=== PATIENT | female | born 1985 | race Caucasian/White ===

== ENCOUNTER 2022-05-15 00:54 | Emergency (ER) | payer MEDICARE, MEDICAID, SELFPAY ==
[2022-05-15 00:55] VITALS: BP 150/66; PULSE 73; RESP 18; TEMP 36.6; O2SAT 99; BMI 31.2
--- NOTE | 2022-05-15 01:20 | EKG12_ITS ---
Test Reason : SOB Blood Pressure : / mmHG Vent. Rate : 071 BPM Atrial Rate : 071 BPM P-R Int : 176 ms QRS Dur : 090 ms QT Int : 450 ms P-R-T Axes : 069 132 081 degrees QTc Int : 489 ms Normal sinus rhythm Right axis deviation Low voltage QRS Confirmed by GEE MAYEN, JEFFERY ([id number]), photograph editor LITTLE DEE ([id number]) on 05/16/2022 9:19:43 AM Referred By: ZEINA Confirmed By:JEFFERY FLYNN MD
--- NOTE | 2022-05-15 01:20 | RAD_ITS ---
EXAM: XR CHEST, 1 VIEW CLINICAL INDICATION: cough TECHNIQUE: Frontal view of the chest. This report was created using [email or web address] report generation technology. COMPARISON: None. FINDINGS: LUNGS AND PLEURAL SPACES: Mild pulmonary edema. No pneumothorax. No effusion. HEART: Mild enlargement of the cardiac silhouette. MEDIASTINUM: Central airways and mediastinal contour are unremarkable. BONES/JOINTS: Unremarkable. SOFT TISSUES: Unremarkable. RAD/Chest 1 View (Portable) IMPRESSION: Mild pulmonary edema. Electronically Signed: Trenton Crane MD at 2:02 EDT ,
[2022-05-15] MEDS: Albuterol 2.5 MG/3 ML VIAL.NEB. INHALATION (01:26)
[2022-05-15] MEDS: Ipratropium/Albuterol Sulfate 3 ML AMPUL.NEB INHALATION ×2 (01:26→02:36)
[2022-05-15 01:27] VITALS: PULSE 74; RESP 14
--- NOTE | 2022-05-15 01:46 | EX.ED.DYSGE1 ---
HPI History of Present Illness Chief Complaint: Shortness of Breath Narrative Narrative: Patient is a 37-year-old female with past medical history of chronic renal failure on dialysis as well as diabetes treated with insulin and hypothyroidism. She states she has had a cough for approximately 3 weeks and has been tested for COVID multiple times and this has been negative. She states that she is a smoker and continues to smoke despite this cough. She states she receives dialysis Sunday and Sunday and has not missed any treatments. She reports this evening she felt her chest was tight and burning and she felt increased shortness of breath and therefore sent to the hospital for evaluation. [facility] Medical History Anemia Blind End stage renal disease Fistula Hypertension Hypothyroidism Type 1 diabetes mellitus Home Medications B [id number] acid-Zn tablet 1 tab PO DAILY supplement 05/15/22 [History Last Taken Unknown] albuterol sulfate 90 mcg/actuation aerosol inhaler (Ventolin HFA) 1 - 2 puff inhalation Q4H PRN PRN Wheezing #1 device 05/15/22 [Rx Last Taken Unknown] calcium acetate(phosphat bind) 667 mg tablet 2,001 mg PO TIDCM 05/15/22 [History Last Taken Unknown] clopidogrel 75 mg tablet 75 mg PO DAILY 05/15/22 [History Last Taken Unknown] hydralazine 50 mg tablet 50 mg PO TID 05/15/22 [History Last Taken Unknown] insulin glargine 100 unit/mL subcutaneous solution 14 unit subcut QHS 05/15/22 [History Last Taken Unknown] insulin lispro 100 unit/mL subcutaneous pen 6 unit subcut TIDCM 05/15/22 [History Last Taken Unknown] insulin lispro 100 unit/mL subcutaneous pen See Protocol subcut 05/15/22 [History Last Taken Unknown] ipratropium 0.5 mg-albuterol 3 mg (2.5 mg base)/3 mL nebulization soln 3 ml inhalation Q6H PRN shortness of breath or wheezing #180 mL 05/15/22 [Rx Last Taken Unknown] labetalol 300 mg tablet 400 mg PO TID 05/15/22 [History Last Taken Unknown] levothyroxine 150 mcg tablet 150 mcg PO MOTUWETHFRSA 05/15/22 [History Last Taken Unknown] levothyroxine 300 mcg tablet 300 mcg PO WOODS 05/15/22 [History Last Taken Unknown] nifedipine 90 mg tablet,extended release 90 mg PO DAILY 05/15/22 [History Last Taken Unknown] Allergy/AdvReac Type Severity Reaction Status Date / Time chlorhexidine Allergy Rash Verified 05/15/22 01:04 iodine Allergy Rash Verified 05/15/22 00:57 morphine Allergy Shortness Verified 05/15/22 00:57 of breath povidone-iodine Allergy PT UNSURE Verified 05/15/22 01:04 [From Betadine] OF REACTION clonidine AdvReac Low blood Verified 05/15/22 01:04 pressure Surgical History (Updated 05/15/22 @ 01:03 by Carmella Vargas) H/O eye surgery Social History Smoking Status: Current every day smoker tobacco type: cigarettes ROS ROS ED Constitutional Constitutional ED: Denies chills or fever(s) ENT ENT ED: Denies sore throat Cardiovascular Cardiovascular: Denies chest pain Respiratory/Chest Respiratory/Chest: Reports cough and dyspnea Gastrointestinal Gastrointestinal: Denies abdominal pain, diarrhea, nausea or vomiting Musculoskeletal Musculoskeletal: Denies myalgias Integumentary Denies rash Neurologic Neurologic: Denies headache(s) Psychiatric Psychiatric: Denies anxiety Hematologic/Lymphatic Hematologic/Lymphatic: Denies easy bleeding or easy bruising EXAM Physical Exam Const Vital Signs: 05/15/22 00:55 05/15/22 01:13 05/15/22 01:27 Temperature 97.9 F Temperature Source Temporal Pulse Rate 73 74 Respiratory Rate 18 14 Respiratory Effort Normal Non-Labored Respiratory Depth Normal Respiratory Pattern Normal Blood Pressure 150/66 H Blood Pressure Mean 94 Pulse Ox 99 Oxygen Delivery Method Room Air Room Air Positive well nourished, well developed and obese General Appearance ED: well developed Nutritional Appearance: obese HEENT Reports moist mucous membranes HEENT Narrative: No tongue or lip swelling no oral lesions no airway edema or compromise. There is cobblestoning the posterior pharynx consistent with sinus drainage. No secondary changes to suggest infection Neck supple Neck Narrative: Trace JVD bilaterally Resp normal respiratory effort Resp Narrative: No nasal flaring retractions tachypnea or accessory muscle use. Breath sounds are diminished throughout however with diffuse inspiratory and expiratory wheezing slightly greater in the bilateral bases Cardio regular rate and regular rhythm Extremity Extremity Narrative: Patient has a fistula in place in the left upper arm with palpable thrill and good bruit. There is trace pitting edema to the bilateral lower extremities with negative Homans' sign bilaterally Neuro oriented x3 and CN's II-XII intact bilaterally Sensorium / Orientation: alert Psych mental status grossly normal Skin no rashes or lesions noted MDM MDM MDM Narrative Medical decision making narrative: Patient presented to the ER afebrile and satting anywhere from 93 to 99% on room air. She has a history of smoking and her breath sounds were diminished and rhonchorous with wheeze throughout indicating most likely lung inflammation/COPD exacerbation as a cause of her chest discomfort and shortness of breath. With her chronic renal failure there is also concern for volume overload. Therefore I elected to perform a chest x-ray. This showed just mild pulmonary edema without pleural effusions infiltrate or pneumothorax. EKG showed normal sinus rhythm without changes to suggest ischemia or hyperkalemia. I felt no need for COVID swab as patient's had this done reportedly 2 or 3 times and each 1 has been negative. She was given breathing treatments and on reevaluation has improvement of her breath sounds and her pulse ox has remained stable. Therefore this time I do not feel there is need for further work-up or admission. Patient will be prescribed albuterol inhaler as well as DuoNeb nebulizer treatments which should prevent further exacerbation. She is scheduled to have dialysis in a few hours and this will help resolve the mild pulmonary edema found on today's x-ray. Therefore at this time as she is not hypoxic or requiring supplemental oxygen or in need of a thoracentesis I do not feel there is need to keep the patient in the hospital and she is otherwise safe for discharge Radiography Diagnostic Testing: Clinical Impression(s) from Imaging Studies Chest X-Ray 05/15/22 01:20 IMPRESSION: Mild pulmonary edema. Electronically Signed: Trenton Crane MD at 2:02 EDT , 1 view chest x-ray as interpreted by the emergency medicine physician reveals cardiomegaly with mild pulmonary edema but no pleural effusion infiltrate or pneumothorax Discharge Plan Triage Chief Complaint: Shortness of Breath ED Provider: Blair Velarde Dx/Rx/DC Orders Clinical Impression: COPD exacerbation, Chronic kidney failure, Pulmonary edema Instructions: COPD: Wheezing and Chest Tightness Prescriptions: New albuterol sulfate [Ventolin HFA] 90 mcg/actuation HFA aerosol inhaler 1 - 2 puff inhalation Q4H PRN PRN (Reason: Wheezing) Qty: 1 1RF ipratropium-albuterol 0.5 mg-3 mg(2.5 mg base)/3 mL solution for nebulization 3 ml inhalation Q6H PRN (Reason: shortness of breath or wheezing) Qty: 180 1RF No Action nifedipine 90 mg Tablet Extended Release 90 mg PO DAILY labetalol 300 mg Tablet 400 mg PO TID insulin glargine 100 unit/mL Solution 14 unit SUBCUT QHS levothyroxine 300 mcg Tablet 300 mcg PO WOODS clopidogrel 75 mg Tablet 75 mg PO DAILY calcium acetate(phosphat bind) 667 mg Tablet 2,001 mg PO TIDCM levothyroxine 150 mcg Tablet 150 mcg PO MOTUWETHFRSA hydralazine 50 mg Tablet 50 mg PO TID B gooesln-P-klren acid-Zn Tablet 1 tab PO DAILY insulin lispro 100 unit/mL Insulin Pen 6 unit SUBCUT TIDCM insulin lispro 100 unit/mL Insulin Pen See Protocol SUBCUT Protocol: 6. Sliding Scale Insulin Custom Condition: mg/dl range Condition: 200-250 Dose/Route: 2 Condition: 251-300 Dose/Route: 3 Condition: 301-350 Dose/Route: 4 Condition: 351-400 Dose/Route: 5 Condition: 401-450 Dose/Route: 6 Condition: 450+ Dose/Route: 6, notify md Protocol Text: Custom Sliding Scale Primary Care Provider: [place] Referrals: NOT,DEFINED [NON-STAFF] - Disposition Disposition: Home, Self Care
--- NOTE | 2022-05-15 02:36 | NURSING ---
PHYSICIANS GAVE ETA 60/90 MIN AT 0238
[2022-05-15 02:37] VITALS: PULSE 77; RESP 16
[2022-05-15 02:42] VITALS: BP 174/72; PULSE 75; RESP 16; O2SAT 100
== END 2022-05-15 03:41 | disposition home or self-care (01) ==
PROVIDERS: Emergency Provider Emergency Medicine; PCP Family Medicine; Visit Provider Emergency Medicine
DX: J44.1 Chronic obstructive pulmonary disease with (acute) exacerbation (principal); Z99.2 Dependence on renal dialysis; E10.22 Type 1 diabetes mellitus with diabetic chronic kidney disease; I12.0 Hypertensive chronic kidney disease with stage 5 chronic kidney disease or end stage renal disease; N18.6 End stage renal disease; J81.1 Chronic pulmonary edema; F17.210 Nicotine dependence, cigarettes, uncomplicated; E66.9 Obesity, unspecified
CPT/HCPCS: 71045; 93005; 94640; 99284

== ENCOUNTER 2022-06-09 10:46 | Inpatient (IN) | payer MEDICARE, MEDICAID, SELFPAY ==
[2022-06-09] VITALS (18 sets, daily range): BP systolic 146–196; BP diastolic 69–83; PULSE 71–85; RESP 12–20; TEMP 36.2–37.2; O2SAT 86–100; BMI 33.6; BMI 30.6
--- NOTE | 2022-06-09 11:01 | EKG12_ITS ---
Test Reason : Blood Pressure : / mmHG Vent. Rate : 080 BPM Atrial Rate : 080 BPM P-R Int : 176 ms QRS Dur : 094 ms QT Int : 424 ms P-R-T Axes : 071 039 095 degrees QTc Int : 489 ms Normal sinus rhythm Low voltage QRS Cannot rule out Anterior infarct , age undetermined Abnormal ECG Confirmed by JOSE MAYEN, PEDRO PABLO ([id number]), editor house organ GITA HERNADEZ ([id number]) on 06/13/2022 8:56:08 AM Referred By: Confirmed By:RASHID GARCIA MD
--- NOTE | 2022-06-09 11:07 | ED.VIS.CHEST ---
HPI History of Present Illness Chief Complaint: Chest Pain Detail of Chief Complaint: At rest while getting dialysis. Since resolved. Informant: patient Onset/Context/Timing Onset: Today Activity at onset: gradual Timing: Intermittent Quality: Positive for Burning Location: Substernal Current Severity: Gone Maximum Severity: Mild Worsened By: Nothing Relieved By: Nothing Associated Symptoms: Negative for Nausea, Vomiting, Diaphoresis, Dyspnea, Cough, Fever, Lightheadedness, Acid Reflux or Palpitations Narrative Narrative: 37-year-old female extensive past medical history of end-stage renal disease with dialysis she was receiving dialysis today. Anemia, legally blind. Hypertension, diabetes. No cardiac history prior negative stress test has never had a heart catheterization. She gets dialyzed on Sunday. A full run yesterday. Today during dialysis around 945 this morning about 30 to 40 minutes prior to her dialysis ending she got midsternal chest discomfort which she describes as a burning. Said when she took a deep breath it felt better. It was not pleuritic. No hemoptysis. She is never had a DVT or PE. She denies any fever or chills. Said she was placed on oxygen they stopped dialysis and the pain seemed to gradually get better and then resolved. Currently she is pain-free. She denies any recent exertional dyspnea. Nor any exertional chest pain. Prior Similar Symptoms: Yes Recent Illness/Hospitalization: No CVD Risk Factors: Positive for Hypertension, Diabetes and Smoking PE Risk Factors: Positive for Recent Immobilization; Negative for Recent Travel/Surgery, Prior DVT or PE, Cancer or OCP + Smoking + >/=35 TAD Risk Factors: Negative for Marfan's Syndrome [facility] Medical History Anemia Blind End stage renal disease Fistula Hypertension Hypothyroidism Type 1 diabetes mellitus Home Medications B [id number]-[id number]-pwtka acid-Zn tablet 1 tab PO DAILY supplement 05/15/22 [History Last Taken Unknown] albuterol sulfate 90 mcg/actuation aerosol inhaler (Ventolin HFA) 1 - 2 puff inhalation Q4H PRN PRN Wheezing #1 device 05/15/22 [Rx Last Taken Unknown] calcium acetate(phosphat bind) 667 mg tablet 2,001 mg PO TIDCM 05/15/22 [History Last Taken Unknown] clopidogrel 75 mg tablet 75 mg PO DAILY 05/15/22 [History Last Taken Unknown] hydralazine 50 mg tablet 50 mg PO TID 05/15/22 [History Last Taken Unknown] insulin glargine 100 unit/mL subcutaneous solution 14 unit subcut QHS 05/15/22 [History Last Taken Unknown] insulin lispro 100 unit/mL subcutaneous pen 6 unit subcut TIDCM 05/15/22 [History Last Taken Unknown] insulin lispro 100 unit/mL subcutaneous pen See Protocol subcut 05/15/22 [History Last Taken Unknown] ipratropium 0.5 mg-albuterol 3 mg (2.5 mg base)/3 mL nebulization soln 3 ml inhalation Q6H PRN shortness of breath or wheezing #180 mL 05/15/22 [Rx Last Taken Unknown] labetalol 300 mg tablet 400 mg PO TID 05/15/22 [History Last Taken Unknown] levothyroxine 150 mcg tablet 150 mcg PO MOTUWETHFRSA 05/15/22 [History Last Taken Unknown] levothyroxine 300 mcg tablet 300 mcg PO WOODS 05/15/22 [History Last Taken Unknown] nifedipine 90 mg tablet,extended release 90 mg PO DAILY 05/15/22 [History Last Taken Unknown] Allergy/AdvReac Type Severity Reaction Status Date / Time chlorhexidine Allergy Rash Verified 06/09/22 10:48 iodine Allergy Rash Verified 06/09/22 10:48 morphine Allergy Shortness Verified 06/09/22 10:48 of breath povidone-iodine Allergy PT UNSURE Verified 06/09/22 10:48 [From Betadine] OF REACTION clonidine AdvReac Low blood Verified 06/09/22 10:48 pressure Surgical History H/O eye surgery Social History Smoking Status: Current every day smoker tobacco type: cigarettes ROS ROS ED ROS Narrative No recent illness. Review of Systems ROS Unobtainable: Denies due to encephalopathy Constitutional Constitutional ED: Denies chills or fever(s) Eyes Eyes: Denies none ENT ENT ED: Denies ear pain Cardiovascular Cardiovascular: Reports as per HPI and chest pain Respiratory/Chest Respiratory/Chest: Denies cough or dyspnea Gastrointestinal Gastrointestinal: Denies abdominal pain, constipation or diarrhea Genitourinary Genitourinary ED: Denies dysuria Musculoskeletal Musculoskeletal: Denies arthralgias Integumentary Denies abscess Neurologic Neurologic: Denies headache(s) Psychiatric Psychiatric: Denies anxiety Endocrine Endocrinology: Denies cold intolerance Hematologic/Lymphatic Hematologic/Lymphatic: Denies easy bleeding Allergic/Immunologic Allergic/Immunologic ED: Denies mouth swelling or tongue swelling EXAM Physical Exam Narrative Exam Narrative: 29-year-old female no acute distress. Vital signs stable pulse ox 86% on room air hypoxic on 2 L she is 95%. H EENT exam patient is blind.. Neck nontender. Lungs scattered expiratory wheezes. She has a history of COPD. Heart regular rhythm rate about 80 no murmur. Chest were nontender. Abdomen soft nontender. Moving all 4 extremities. 1+ pitting edema both lower extremities. Calves nontender. Neurologically she is legally blind. Moving all 4 extremities. Equal symmetrical radial pulses. She is awake and alert. Const Vital Signs: 06/09/22 10:48 06/09/22 10:52 06/09/22 10:54 Temperature 97.2 F L Temperature Source Temporal Pulse Rate 81 Respiratory Rate 18 Respiratory Effort Normal Non-Labored Blood Pressure 162/75 H Blood Pressure Mean 104 Pulse Ox 86 95 Oxygen Delivery Method Room Air Nasal Cannula Oxygen Flow Rate (L/min) 2 06/09/22 11:12 06/09/22 11:35 06/09/22 11:35 Temperature Temperature Source Pulse Rate 79 Respiratory Rate 14 Respiratory Effort Blood Pressure Blood Pressure Mean Pulse Ox 98 Oxygen Delivery Method Nasal Cannula Nasal Cannula Oxygen Flow Rate (L/min) 2 2 06/09/22 12:08 Temperature Temperature Source Pulse Rate 79 Respiratory Rate 14 Respiratory Effort Blood Pressure 151/69 H Blood Pressure Mean 96 Pulse Ox 98 Oxygen Delivery Method Nasal Cannula Oxygen Flow Rate (L/min) 2 Positive well nourished, well developed and obese; Negative for cachectic, contractures or unkempt General Appearance ED: well developed and NAD; Negative for unkempt, cachectic, contractures or pallor Nutritional Appearance: obese; Negative for cachectic HEENT Reports moist mucous membranes normocephalic and atraumatic; Negative for trauma Eyes PERRL and EOMs intact bilaterally General Eye ED: Negative for pale conjunctiva or scleral icterus Neck no lymphadenopathy, supple and no JVD General: Negative for tenderness Chest Wall inspection of chest normal and palpation of chest normal Chest: Negative for tenderness Resp normal respiratory effort and No clear to auscultation bilaterally Auscultation: wheezes; Negative for rales or rhonchi Cardio regular rate, regular rhythm, S1 normal heart sound, S2 normal heart sound and no murmurs Peripheral Pulses: pulses 2+ throughout GI normal to inspection, nondistended, normoactive bowel sounds, soft to palpation, non-tender, non-distended and no masses Back/Spine no CVA tenderness General Back: Negative for CVA tenderness Cervical Spine: Negative for cervical spine tenderness Extremity normal to inspection General Extremety ED: Yes edema General Extremity: edema Neuro oriented x3 Sensorium / Orientation: awake and alert Motor Exam: strength 5/5 throughout Psych mental status grossly normal Appearance: Negative for unkempt Attitude: No agitated Mood & Affect: Negative for depressed, anxious or tearful Skin no rashes or lesions noted and no wounds General Skin Exam: Negative for jaundice or pallor Rashes: No rashes noted Trauma: Negative for abrasion Heart Score History: Slightly/Non-Suspicious ECG: Normal Age: </= 45 years Risk Factors: 1 or 2 Risk Factors Troponin: </= Normal Limit Score: 1 MDM MDM MDM Narrative Medical decision making narrative: 37-year-old with multiple medical problems but no known history of cardiac disease with nonexertional chest discomfort during dialysis. It is since resolved. She had a similar episode like this before with bronchial inflammation. She undergo cardiac work-up. Repeat exam patient is wheezing is much improved after the aerosol treatments. She did not take the oral steroids because she was concerned it would elevate her blood sugars. She has no old labs here available for comparison. I suspect the anemia is chronic due to her Chronic kidney disease. She is also borderline hypoxic which I think is secondary to her COPD. Cardiomegaly may be an effusion associated with her end-stage renal disease. I discussed all test results with her and her family. She does not know of elevated troponins in the past. I will speak to the hospitalist about admission. Lab Data Attestation: I reviewed the patient's lab results. Lab results narrative: CBC White count of 5.8. H&H 9.2 and 20.4 which is consistent with her chronic anemia due to her renal disease. Platelets 149,000. Electrolytes Weight. 1 BUN and Creatinine of 37 Was 6.21 She Is a Dialysis Patient. Glucose 154. Troponin 106. No old labs available in our computer for comparison. Labs: Laboratory Results - last 24 hr 06/09/22 06/09/22 11:00 11:00 WBC 5.3 RBC 2.75 L Hgb 9.2 L Hct 28.4 L MCV 103.3 H MCH 33.5 H MCHC 32.4 RDW Std Deviation 53.7 H RDW Coeff of Monica 14.2 Plt Count 149 L MPV 9.8 Immature Gran % (Auto) 0.400 Neut % (Auto) 76.6 H Lymph % (Auto) 14.6 L [place] % (Auto) 4.4 Eos % (Auto) 3.4 Baso % (Auto) 0.6 Absolute Neuts (auto) 4.0 Absolute Lymphs (auto) 0.77 L Nucleated RBC % 0 Sodium 140 Potassium 3.7 Chloride 99 Carbon Dioxide 33.0 H Anion Gap 8 BUN 37 H Creatinine 6.21 H Estim Creat Clear Calc 9.71 Est GFR (MDRD) Af Amer 10 L Est GFR (MDRD) Non-Af 8 L BUN/Creatinine Ratio 6.0 L Glucose 154 H Calcium 9.1 Troponin I High Sens 106 H Radiography Chest X-Ray - ED: 1 View, Lungs, Mediastinum, Bony Structures, No Acute Disease, Chronic Changes and Cardiomegaly Diagnostic Testing: Clinical Impression(s) from Imaging Studies Chest X-Ray 06/09/22 11:45 IMPRESSION: Poor inspiration with some bibasilar atelectasis. Electronically Signed: Douglas Nunes MD at 12:05 EDT , Rhythm Strip Rhythm Strip: Sinus Rhythm Rate: 80 Ectopy: None EKG Initial EKG: Attestation: I personally reviewed and interpreted this EKG as follows: Interpretation: Sinus Rhythm and No Acute Injury Pattern Comments: Normal sinus rhythm rate of 80 no acute signs of CA or ischemia. Unchanged from prior EKG from May 15, 2022 Prior EKG tracings: available for review Prior: Unchanged Discharge Plan Dx/Rx/DC Orders Clinical Impression: Chest pain, COPD (chronic obstructive pulmonary disease), Hypoxia, Elevated troponin, End stage chronic kidney disease, Cardiomegaly, History of diabetes mellitus Disposition Disposition: Acute Care Hospital [facility]
[2022-06-09 11:17] LABS: Absolute Lymphocyte Count 0.77 X10^3/uL (0.83-4.51); Basophil# 0.03 X10^3/uL; Basophil% 0.6 % (0-1); Eosinophil# 0.18 X10^3/uL; Eosinophils% 3.4 % (0-5); Hematocrit 28.4 % (37-47); Hemoglobin 9.2 g/dL (12.0-15.0); Lymphocyte # 0.77 X10^3/ul (0.83-4.51); Lymphocyte % 14.6 % (19-41); Mean Corp Hgb Conc 32.4 g/dL (32-36); Mean Corpuscular Hgb 33.5 pg (27.0-32.0); Mean Corpuscular Volume 103.3 fL (81-99); Mean Platelet Vol. 9.8 fl (6.2-12.0); Monocyte# 0.23 X10^3/uL; Monocyte% 4.4 % (0-10); NRBC Flagged by Analyzer 0 % (0-5); Neutrophil # 4.03 X10^3/uL (2.7-7.7); Neutrophil % 76.6 % (47-70); Platelet Count 149 K/mm3 (150-450); RBC Distribution Width CV 14.2 % (11.6-14.6); RBC Distribution Width SD 53.7 fl (35.1-43.9); Red Blood Count 2.75 M/mm3 (4.2-5.4); White Blood Count 5.3 K/mm3 (4.4-11.0)
[2022-06-09] MEDS: Ipratropium/Albuterol Sulfate 3 ML AMPUL.NEB INHALATION ×2 (11:31→22:55)
[2022-06-09 11:33] LABS: Anion Gap 8 (5-15); BUN 37 mg/dL (7-18); Calcium,Total 9.1 mg/dL (8.5-10.1); Chloride 99 mmol/L (98-107); Creatinine, Serum 6.21 mg/dL (0.55-1.02); EST Glomerular Filtration Rate 8 mL/min (>60); Est Glom Filt Rate - Afr Amer 10 mL/min (>60); Estimated Creatinine Clearance 9.71 ml/min; Glucose 154 mg/dL (74-106); Potassium 3.7 mmol/L (3.5-5.1); Sodium Level 140 mmol/L (136-145); Troponin-I HS (w/2H Reflex) 106 pg/mL (3.0-54.0)
--- NOTE | 2022-06-09 11:38 | ED.RN ---
dialysis needles removed x2. pressure applied and dressing applied.
--- NOTE | 2022-06-09 11:45 | RAD_ITS ---
STUDY: X-RAY CHEST REASON FOR EXAM: Female, 37 years old. chest pain TECHNIQUE: Single AP portable view of the chest. COMPARISON: FINDINGS: Poor inspiration with some bibasilar atelectasis. There is no demonstrated pleural abnormality. There is moderate cardiac enlargement. Normal mediastinum and richard. Normal visualized pulmonary arteries. Normal visualized aortic arch and descending thoracic aorta. Normal visualized thoracic spine. Normal visualized ribs, clavicles, and shoulders. There is no demonstrated abnormality of the visualized soft tissue structures of the upper abdomen. RAD/Chest 1 View (Portable) IMPRESSION: Poor inspiration with some bibasilar atelectasis. Electronically Signed: Douglas Nunes MD at 12:05 EDT ,
[2022-06-09] MEDS: Albuterol 2.5 MG/3 ML VIAL.NEB. INHALATION (12:06)
--- NOTE | 2022-06-09 13:01 | NURSING ---
112 OBS JOPPERI CHEST PAIN, ABNORAMAL TROP, CARDIOMEGALY, HYPOXIA, COPD
--- NOTE | 2022-06-09 13:11 | HP.PCM.HOS_ITS ---
HPI - General General Date of Admission: 06/09/22 Date of Service: 06/09/22 Chief Complaint: Chest pain HPI Narrative SCOOTER RUBIO, is a 37 F who presents with chest pain. Occurred while she was on dialysis. Chest pain was midsternal but then developed paresthesias down her left arm. Dialysis was discontinued 39 minutes early. Chest pain resolved shortly afterwards. Patient is never had any issues like this before. Patient denies any history of any prior cardiac issues. Patient presented to the emergency room and had a troponin that was 106. Patient has no prior labs to compare to. [facility] Medical History (Updated 06/09/22 @ 13:[address] Milan Mckeon, DO) Anemia Blind End stage renal disease Fistula Hypertension Hypothyroidism Type 1 diabetes mellitus Home Medications B fujlljt-I-qorow acid-Zn tablet 1 tab PO DAILY supplement 05/15/22 [History Last Taken Unknown] albuterol sulfate 90 mcg/actuation aerosol inhaler (Ventolin HFA) 1 - 2 puff inhalation Q4H PRN PRN Wheezing #1 device 05/15/22 [Rx Last Taken Unknown] calcium acetate(phosphat bind) 667 mg tablet 2,001 mg PO TIDCM 05/15/22 [History Last Taken Unknown] clopidogrel 75 mg tablet 75 mg PO QHS 05/15/22 [History Last Taken Unknown] hydralazine 50 mg tablet 50 mg PO TID 05/15/22 [History Last Taken Unknown] insulin glargine 100 unit/mL subcutaneous solution 14 unit subcut QHS 05/15/22 [History Last Taken Unknown] insulin lispro 100 unit/mL subcutaneous pen 6 unit subcut TIDCM 05/15/22 [History Last Taken Unknown] insulin lispro 100 unit/mL subcutaneous pen See Protocol subcut TIDCM 05/15/22 [History Last Taken Unknown] ipratropium 0.5 mg-albuterol 3 mg (2.5 mg base)/3 mL nebulization soln 3 ml inhalation Q6H PRN shortness of breath or wheezing #180 mL 05/15/22 [Rx Last Taken Unknown] labetalol 300 mg tablet 400 mg PO TID 05/15/22 [History Last Taken Unknown] levothyroxine 150 mcg tablet 150 mcg PO MOTUWETHFRSA 05/15/22 [History Last Taken Unknown] levothyroxine 300 mcg tablet 300 mcg PO WOODS 05/15/22 [History Last Taken Unknown] nifedipine 90 mg tablet,extended release 90 mg PO DAILY 05/15/22 [History Last Taken Unknown] Allergy/AdvReac Type Severity Reaction Status Date / Time chlorhexidine Allergy Rash Verified 06/09/22 10:48 iodine Allergy Rash Verified 06/09/22 10:48 morphine Allergy Shortness Verified 06/09/22 10:48 of breath povidone-iodine Allergy PT UNSURE Verified 06/09/22 10:48 [From Betadine] OF REACTION clonidine AdvReac Low blood Verified 06/09/22 10:48 pressure Family History (Updated 06/09/22 @ 13:[address] Milan Mckeon DO) Other CAD (coronary artery disease) Heart disease Surgical History H/O eye surgery Social History (Updated 06/09/22 @ 13:[address] Milan Mckeon DO) Smoking Status: Current every day smoker tobacco type: cigarettes substance use type: does not use ROS ROS Narrative Patient did have shortness of breath. Patient has had a cough over the past few months that is occasionally productive. Does have lower extremity edema which is unchanged. Patient is blind due to diabetic retinopathy. She does administer her insulin. Patient had recent been over at [facility] for convalescent care as the patient's significant other was incarcerated. All review of systems were negative except as mentioned above in the history of present illness and the other review of systems. Vital Signs Vital Signs Vital Signs: 06/09/22 10:48 06/09/22 10:52 06/09/22 10:54 Temperature 36.2 C L Temperature Source Temporal Pulse Rate 81 Respiratory Rate 18 Respiratory Effort Normal Non-Labored Blood Pressure 162/75 H Blood Pressure Mean 104 Pulse Ox 86 95 Oxygen Delivery Method Room Air Nasal Cannula Oxygen Flow Rate (L/min) 2 06/09/22 11:12 06/09/22 11:35 06/09/22 11:35 Temperature Temperature Source Pulse Rate 79 Respiratory Rate 14 Respiratory Effort Blood Pressure Blood Pressure Mean Pulse Ox 98 Oxygen Delivery Method Nasal Cannula Nasal Cannula Oxygen Flow Rate (L/min) 2 2 06/09/22 12:08 06/09/22 12:21 06/09/22 12:51 Temperature 36.2 C L Temperature Source Temporal Pulse Rate 79 75 71 Respiratory Rate 14 12 20 H Respiratory Effort Blood Pressure 151/69 H 146/69 H 154/71 H Blood Pressure Mean 96 94 98 Pulse Ox 98 91 95 Oxygen Delivery Method Nasal Cannula Room Air Nasal Cannula Oxygen Flow Rate (L/min) 2 2 Weight Weight: 83.5 kg Body Mass Index (BMI) 33.6 Physical Exam Const alert and no apparent distress Constitutional Narrative: Appears older than stated age HEENT normocephalic Resp normal respiratory effort Resp Narrative: Faint wheezing bilaterally Cardio regular rate, regular rhythm, S1 normal heart sound and S2 normal heart sound GI normal to inspection, nondistended, normoactive bowel sounds and soft to palpation Neuro Sensorium / Orientation: awake and alert Psych affect normal Results Lab / Micro Data Attestation: I reviewed the patient's lab results. Result Diagrams: 06/09/22 11:00 06/09/22 11:00 Labs: Laboratory Results - last 24 hr 06/09/22 11:00: WBC 5.3, RBC 2.75 L, Hgb 9.2 L, Hct 28.4 L, MCV 103.3 H, MCH 33.5 H, MCHC 32.4, RDW Std Deviation 53.7 H, RDW Coeff of Monica 14.2, Plt Count 149 L, MPV 9.8, Immature Gran % (Auto) 0.400, Neut % (Auto) 76.6 H, Lymph % (Auto) 14.6 L, [place] % (Auto) 4.4, Eos % (Auto) 3.4, Baso % (Auto) 0.6, Absolute Neuts (auto) 4.0, Absolute Lymphs (auto) 0.77 L, Nucleated RBC % 0 06/09/22 11:00: Sodium 140, Potassium 3.7, Chloride 99, Carbon Dioxide 33.0 H, Anion Gap 8, BUN 37 H, Creatinine 6.21 H, Estim Creat Clear Calc 9.71, Est GFR (MDRD) Af Amer 10 L, Est GFR (MDRD) Non-Af 8 L, BUN/Creatinine Ratio 6.0 L, Glucose 154 H, Calcium 9.1, Troponin I High Sens 106 H Rhythm Strip Rhythm Strip: Sinus Rhythm Rate: 80 Ectopy: None EKG Initial EKG: Attestation: I personally reviewed and interpreted this EKG as follows: Prior EKG tracings: available for review EKG Rhythm Intrepretation: Sinus Rhythm Radiology Impression Chest X-Ray 06/09/22 11:45 IMPRESSION: Poor inspiration with some bibasilar atelectasis. Electronically Signed: Douglas Nunes MD at 12:05 EDT , Assessment & Plan Assessment/Plan (1) Unstable angina: PLAN: Troponin is elevated but it is unclear if this is skewed due to her end- stage renal disease. Therefore I cannot qualify this as a non-ST ovation myocardial infarction at this time. Did discussed with Dr. Rowland. He agrees a troponin may be skewed due to her end-stage renal disease. He is okay with the patient having a stress test unless her troponin goes up considerably then at that point in time then cardiology be consulted and patient may need to have a left heart catheterization. Patient did receive aspirin in the emergency room. We will continue with aspirin. Patient is on clopidogrel as well. Check fasting lipid panel Cycle troponins Check 2D echocardiogram Nuclear stress test Low suspicion for pulmonary embolism: Patient's PERC is 0 and Wells score 0. No additional work-up for PE at this time. (2) Type 1 diabetes mellitus: PLAN: Continue with basal and prandial insulin Sliding-scale insulin Check an A1c (3) End stage chronic kidney disease: PLAN: Patient is normal dialysis days are Sunday. Patient had incomplete session today ending 39 minutes early. Will hold off on nephrology at this time PLAN: Plan VTE prophylaxis not indicated at this time. Charges/Coding Visit Charges OBSV E&M: 34101 Initial observation care L2
[2022-06-09 13:12] LABS: Reflex Troponin-HS? (from REC) Y
--- NOTE | 2022-06-09 13:51 | ECHOD_ITS ---
Reason For Study: CHEST PAIN Procedure This was a 2D Doppler, Color Flow transthoracic echocardiogram. Exam performed portable in patient room. Left Ventricle Normal LV size. Concentric left ventricular hypertrophy. The estimated ejection fraction is 70 %. Stage 2 diastolic dysfunction. No regional wall motion abnormalities noted. Right Ventricle Normal RV size. Normal systolic function. Atria Normal left atrium. Normal right atrium. No doppler evidence for ASD. Mitral Valve There is no mitral valve stenosis. Trivial mitral valve insufficiency. Tricuspid Valve There is no tricuspid stenosis. Mild tricuspid valve insufficiency. Pulmonary artery systolic pressure is 50 mmHg. Aortic Valve Trisinus/trileaflet aortic valve. There is no aortic stenosis. No aortic valve insufficiency. Pulmonic Valve There is no pulmonic valvular stenosis. Trivial pulmonic valve insufficiency. Great Vessels Normal aortic root. Pericardium/Pleural Small pericardial effusion. There are no echocardiographic indications of cardiac tamponade. MMode/2D Measurements & Calculations LVIDd: 3.7 cm IVSd: 1.8 cm Ao root diam: 2.7 cm LVIDs: 2.5 cm LVPWd: 1.8 cm RVDd: 4.0 cm FS: 33.0 % LAV(MOD-sp4): 70.0 ml LVAd ap4: 28.4 cm2 SV(MOD-sp4): 47.8 ml LVLd ap4: 9.0 cm EDV(MOD-sp4): 74.0 ml EDV(sp4-el): 76.5 ml LVAs ap4: 13.7 cm2 LVLs ap4: 7.5 cm ESV(MOD-sp4): 26.1 ml ESV(sp4-el): 21.3 ml EF(MOD-sp4): 64.7 % EF(sp4-el): 72.1 % SV(sp4-el): 55.2 ml LA A4 area: 22.6 cm2 LA dimension(2D): 4.1 cm RA A4 area: 20.9 cm2 Time Measurements MV dec time: 0.16 sec Doppler Measurements & Calculations MV E max vipin: 125.1 cm/sec Lat Peak E' Vipin: 7.3 cm/sec Med Peak E' Vipin: 6.5 cm/sec MV A max vipin: 86.4 cm/sec E/E' lat: 17.3 E/E' med: 19.3 MV E/A: 1.4 MV V2 max: 128.6 cm/sec Ao V2 max: 168.1 cm/sec MV max P.6 mmHg MV dec slope: 805.5 cm/sec2 Ao max P.3 mmHg MV V2 mean: 77.3 cm/sec Ao V2 mean: 114.0 cm/sec MV mean P.7 mmHg Ao mean P.1 mmHg MV V2 VTI: 37.3 cm Ao V2 VTI: 36.4 cm LV V1 max: 137.6 cm/sec PA V2 max: 109.8 cm/sec TR max vipin: 326.3 cm/sec LV V1 max P.6 mmHg PA V2 mean: 74.9 cm/sec TR max P.6 mmHg LV V1 mean P.3 mmHg LV V1 mean: 96.9 cm/sec LV V1 VTI: 31.2 cm ECHO/Echo Complete Interpretation Summary The estimated ejection fraction is 70 %. Stage 2 diastolic dysfunction. Concentric left ventricular hypertrophy. Trivial mitral valve insufficiency. Mild tricuspid valve insufficiency. Small pericardial effusion. There are no echocardiographic indications of cardiac tamponade. Ordering Physician: Milan Mckeon Referring Physician: NO PCP Performed By: Chio Cha RCS
--- NOTE | 2022-06-09 13:51 | EKG12_ITS ---
Test Reason : CP REAPEAT Blood Pressure : / mmHG Vent. Rate : 072 BPM Atrial Rate : 072 BPM P-R Int : 176 ms QRS Dur : 086 ms QT Int : 440 ms P-R-T Axes : 050 -34 090 degrees QTc Int : 481 ms Normal sinus rhythm Left axis deviation Low voltage QRS Cannot rule out Anterior infarct , age undetermined Abnormal ECG When compared with ECG of 09-JUN-2022 11:08, MANUAL COMPARISON REQUIRED, DATA IS UNCONFIRMED Confirmed by JOSE MAYEN, PEDRO PABLO ([id number]), social media editor GITA HERNADEZ ([id number]) on 06/13/2022 9:25:01 AM Referred By: Confirmed By:RASHID GARCIA MD
[2022-06-09 13:52] LABS: Troponin-I HS 93 pg/mL (3.0-54.0)
[2022-06-09] MEDS: hydrALAZINE 50 MG Tablet PO ×2 (15:42→22:16)
[2022-06-09 16:35] LABS: Bedside Glucose 102 mg/dL (74-106)
[2022-06-09] MEDS: Calcium Acetate 667 MG Capsule 2001 MG PO (17:17)
[2022-06-09] MEDS: Insulin Lispro 100 UNIT/ML INSULN.PEN 6 UNIT SC (17:18)
[2022-06-09 19:25] LABS: Troponin-I HS 96 pg/mL (3.0-54.0)
[2022-06-09] MEDS: Clopidogrel Bisulfate 75 MG Tablet PO (22:16)
--- NOTE | 2022-06-09 22:46 | NURSING ---
Pt satting 96-97% on 1L oxygen, however, pt requested to be put on 2L stating that she uses 2L of o2 at home as needed and she would like to stay on it throughout the night. Pt also c/o of coughing fits and requested to have a breathing treatment, this RN called RT to request it. Lungs auscultated, expiratory wheezing noted throughout, saturation on 2L o2 is 99-100%. Pt states she feels more comfortable with 2L for now. will continue to monitor.
[2022-06-09] MEDS: hydrALAZINE 20 MG/ML Vial 10 MG IV (23:23)
[2022-06-09 23:31] LABS: Bedside Glucose 155 mg/dL (74-106)
[2022-06-09] MEDS: 0.9% Saline Lock 10 ML Syringe IV (23:34)
[2022-06-10] VITALS (17 sets, daily range): BP systolic 153–215; BP diastolic 68–90; PULSE 77–84; RESP 18; TEMP 36.6–37; O2SAT 94–99
[2022-06-10] MEDS: Aspirin E.C. 81 MG Tablet PO (05:10)
[2022-06-10] MEDS: hydrALAZINE 50 MG Tablet PO ×3 (05:10→14:11)
[2022-06-10] MEDS: Levothyroxine 150 MCG Tablet PO (05:11)
--- NOTE | 2022-06-10 05:55 | EKG12_ITS ---
Test Reason : am EKG Blood Pressure : / mmHG Vent. Rate : 078 BPM Atrial Rate : 078 BPM P-R Int : 166 ms QRS Dur : 088 ms QT Int : 410 ms P-R-T Axes : 044 084 081 degrees QTc Int : 467 ms Normal sinus rhythm Low voltage QRS Cannot rule out Anterior infarct , age undetermined Abnormal ECG Confirmed by JOSE MAYEN, PEDRO PABLO ([id number]), editor city GITA HERNADEZ ([id number]) on 06/13/2022 9:25:12 AM Referred By: Linda Confirmed By:RASHID GARCIA MD
[2022-06-10] MEDS: hydrALAZINE 20 MG/ML Vial 10 MG IV ×2 (06:20→11:11)
[2022-06-10] MEDS: 0.9% Saline Lock 10 ML Syringe IV (06:21)
[2022-06-10 06:46] LABS: Bedside Glucose 93 mg/dL (74-106)
[2022-06-10 06:50] LABS: Anion Gap 9 (5-15); BUN 48 mg/dL (7-18); BUN/Creat Ratio 5.9 RATIO (10-20); Calcium,Total 8.6 mg/dL (8.5-10.1); Chloride 96 mmol/L (98-107); Cholesterol 128 mg/dL (200); EST Glomerular Filtration Rate 6 mL/min (>60); Est Glom Filt Rate - Afr Amer 7 mL/min (>60); Estimated Creatinine Clearance 7.36 ml/min; Glucose 99 mg/dL (74-106); High Density Lipoprotein 68 mg/dL; Potassium 4.9 mmol/L (3.5-5.1); Sodium Level 136 mmol/L (136-145); Thyroid Stim Hormone (TSH) 4.39 uIU/mL (0.358-3.74); Triglycerides 76 mg/dL; Very Low Density Lipoprotein 15 mg/dL (5-40)
[2022-06-10 07:10] LABS: Hemoglobin A1c 7.5 % (3.8-5.6)
--- NOTE | 2022-06-10 08:33 | PCM.PN.HOSP ---
Subjective Subjective No further chest pain. Objective Data Objective Data Vital Signs: Vital Signs Temp Pulse Resp BP Pulse Ox O2 Del Method O2 Flow Rate 36.8 C 82 18 212/90 H 97 Room Air 1 06/10/22 06:17 06/10/22 06:52 06/10/22 06:17 06/10/22 06:20 06/10/22 07:40 06/10/22 07:50 06/10/22 07:40 Oxygen Flow Rate (L/min) 1 Oxygen Delivery Method Room Air Weight: 75.9 kg Body Mass Index (BMI) 30.6 Intake & Output: Intake and Output for Last 24 Hours 06/08/22 06/09/22 06/10/22 23:59 23:59 23:59 Intake Total 240 / 240 Balance 240 / 240 Lab / Micro Data Result Diagrams: 06/09/22 11:00 06/10/22 05:45 Labs: Laboratory Results - last 24 hr 06/09/22 11:00: WBC 5.3, RBC 2.75 L, Hgb 9.2 L, Hct 28.4 L, MCV 103.3 H, MCH 33.5 H, MCHC 32.4, RDW Std Deviation 53.7 H, RDW Coeff of Monica 14.2, Plt Count 149 L, MPV 9.8, Immature Gran % (Auto) 0.400, Neut % (Auto) 76.6 H, Lymph % (Auto) 14.6 L, [place] % (Auto) 4.4, Eos % (Auto) 3.4, Baso % (Auto) 0.6, Absolute Neuts (auto) 4.0, Absolute Lymphs (auto) 0.77 L, Nucleated RBC % 0 06/09/22 11:00: Sodium 140, Potassium 3.7, Chloride 99, Carbon Dioxide 33.0 H, Anion Gap 8, BUN 37 H, Creatinine 6.21 H, Estim Creat Clear Calc 9.71, Est GFR (MDRD) Af Amer 10 L, Est GFR (MDRD) Non-Af 8 L, BUN/Creatinine Ratio 6.0 L, Glucose 154 H, Calcium 9.1, Troponin I High Sens 106 H 06/09/22 13:20: Troponin I High Sens 93 H 06/09/22 16:14: POC Glucose 102 06/09/22 18:05: Troponin I High Sens 96 H 06/09/22 22:09: POC Glucose 155 H 06/10/22 05:45: Sodium 136, Potassium 4.9, Chloride 96 L, Carbon Dioxide 31.0, Anion Gap 9, BUN 48 H, Creatinine 8.20 H*, Estim Creat Clear Calc 7.36, Est GFR (MDRD) Af Amer 7 L, Est GFR (MDRD) Non-Af 6 L, BUN/Creatinine Ratio 5.9 L, Glucose 99, Calcium 8.6, Triglycerides 76, Cholesterol 128, LDL Cholesterol 45, VLDL Cholesterol 15, HDL Cholesterol 68, TSH 4.39 H 06/10/22 05:45: Hemoglobin A1c 7.5 H 06/10/22 06:26: POC Glucose 93 Radiography Diagnostic Testing: Radiology Impression Chest X-Ray 06/09/22 11:45 IMPRESSION: Poor inspiration with some bibasilar atelectasis. Electronically Signed: Douglas Nunes MD at 12:05 EDT , Rhythm Strip Rhythm Strip: Sinus Rhythm Rate: 80 Ectopy: None Physical Exam Const alert and no apparent distress Resp normal respiratory effort and no retractions Cardio regular rate, regular rhythm, S1 normal heart sound and S2 normal heart sound GI normal to inspection, nondistended, normoactive bowel sounds Psych affect normal Assessment & Plan Assessment/Plan (1) Unstable angina: PLAN: Troponin is elevated but it is unclear if this is skewed due to her end-stage renal disease. Therefore I cannot qualify this as a non-ST ovation myocardial infarction at this time. Did discussed with Dr. Rowland. He agrees a troponin may be skewed due to her end-stage renal disease. He is okay with the patient having a stress test unless her troponin goes up considerably then at that point in time then cardiology be consulted and patient may need to have a left heart catheterization. Patient did receive aspirin in the emergency room. We will continue with aspirin. Patient is on clopidogrel as well. Check fasting lipid panel Cycle troponins Check 2D echocardiogram Nuclear stress test Low suspicion for pulmonary embolism: Patient's PERC is 0 and Wells score 0. No additional work-up for PE at this time. (2) Type 1 diabetes mellitus: QUALIFIERS: Diabetes mellitus complication detail: with diabetic retinopathy Diabetes mellitus complication status: with ophthalmic complications Diabetes mellitus macular edema: macular edema presence unspecified Diabetic retinopathy severity: with unspecified retinopathy severity Laterality: bilateral Qualified Code(s): E10.319 - Type 1 diabetes mellitus with unspecified diabetic retinopathy without macular edema PLAN: Continue with basal and prandial insulin Sliding-scale insulin Check an A1c (3) End stage chronic kidney disease: PLAN: Patient is normal dialysis days are Sunday. Patient had incomplete session today ending 39 minutes early. Will hold off on nephrology at this time PLAN: Plan VTE prophylaxis not indicated at this time. Charges/Coding Visit Charges OBSV E&M: 01404 Subsequent observation care L2
[2022-06-10] MEDS: NIFEdipine 90 MG Tablet PO (11:03)
--- NOTE | 2022-06-10 11:16 | CASEMGMT ---
KAITLIN RUDOLPH Face to Face with patient for initial transition planning/care coordination assessment. RN CM introduced self and role at [facility]. Patient lying in bed, alert and oriented. Patient willing to participate in assessment and is able to answer all questions appropriately. Care providers, pharmacy, and demographics verified. Patient wishes to discharge home, denies need for home health at this time. Patient states he has no further needs or concerns at this time. CM to follow for discharge planning needs that may arise. PCP: Antonio Plaza Specialists: [facility]: yes Living Will/HPOA: yes, Jaret Hernandez LNOK: , [facility] Living Arrangements: Patient is currently staying with [facility] in a first floor apartment. Patient states she is independent Transportation: [facility] DME/HHC: Patient states she has glucometer and supplies at home. Patient has home oxygen that she wears as needed, patient states it is a concentrator with the ability to fill portable tank. Patient denies previous HHC or SNF. Disposition Plan: Patient to discharge home with family support and follow-up plans in place Rhiannon THOMPSON, RN, CM
[2022-06-10 11:35] LABS: Bedside Glucose 168 mg/dL (74-106)
--- NOTE | 2022-06-10 11:42 | CASEMGMT ---
KAITLIN RUDOLPH updated by hospitalist that patient will need nebulizer at discharge, script received. KAITLIN CM in to discuss DME agencies and nebulizer. Patient is staying from out of town with brother in law and assisting in his care. Patient agreeable to take script to DME agency of her choice. Patient not familiar with DME agencies in [facility]. Patient provided with DME list, information card for [employer], and script for nebulizer. Patient had no further questions or concerns at this time.
--- NOTE | 2022-06-10 13:01 | STRESSREP_ITS ---
Stress Test Report Date: 06/10/2022 Procedure: Pharmacologic stress nuclear imaging study Indications: Chest pain Consent: Per the patient Procedure: The patient underwent pharmacologic (Regadenoson) evaluation with a peak heart rate of 90 beats per minute (49%predicted maximal heart rate) and a peak blood pressure of 186/78 mmHg. The baseline ECG demonstrated normal sinus rhythm, poor R wave progression in the anterior leads. EKG during lexiscan infusion revealed no significant ischemic changes. EKG post infusion revealed no significant ischemic changes [There were no cardiac dysrhythmias pretest, during pharmacologic infusion, or recovery]. [There was no complaint of chest discomfort during pharmacologic infusion or recovery]. The examination was discontinued secondary to completion of protocol. Impression: 1. Lexiscan stress test test is negative for Lexiscan infusion induced EKG changes of ischemia. 2. Lexiscan stress test test is negative for Lexiscan infusion induced chest pain. 3. Results of the nuclear portion of the test is as below Myocardial perfusion imaging study: Technique: The patient was injected with 11.6 millicuries of technetium 99m Cardiolite and subsequently rest SPECT Cardiolite nuclear imaging was obtained in the horizontal long, vertical long, and short axis views. The patient underwent pharmacologic [Regadenoson 0.4mg] evaluation. Please see above for details. The patient was injected with 34.6 millicuries of technetium 99m Cardiolite and subsequently stress SPECT Cardiolite nuclear imaging was obtained in the horizontal long, vertical long, and short axis views. A gated Cardiolite study at peak stress was obtained. Interpretation: Rest and stress SPECT Cardiolite nuclear imaging status post realignment, normalization, and attenuation correction demonstrate no evidence of significant ischemia or infarction after attenuation correction. Gated images reveal septal hypokinesis. The reported LVEF is 50%. Impression: 1. There is no evidence of significant ischemia or infarction. 2. Estimated ejection fraction is 50%. This note was generated with [employer]ora (by [employer]) software. It may contain incorrect words, spelling, and punctuation that were not noted in checking the note before signing.
[2022-06-10] MEDS: Ipratropium/Albuterol Sulfate 3 ML AMPUL.NEB INHALATION (14:31)
[2022-06-10] MEDS: Labetalol 200 MG Tablet 400 MG PO (14:47)
[2022-06-10] MEDS: Calcium Acetate 667 MG Capsule 2001 MG PO (14:49)
--- NOTE | 2022-06-10 15:36 | DCINST_ITS ---
Discharge Instructions Diet Discharge Diet: 1999 Calorie Control Diet and Renal Diet Follow Up Care Test Results: Test results from this visit will be discussed in further detail at your follow- up appointment, if applicable. Discharge Plan Admission Admit Date/Time: 06/09/22 14:18 Primary Reason for Your Visit: chest pain Attending Provider: Milan Mckeon Primary Care Provider: BARTOLO RONQUILLO Discharge Orders/Prescriptions Prescriptions: New hydralazine 50 mg Tablet 100 mg PO TID Qty: 90 0RF Continued nifedipine 90 mg Tablet Extended Release 90 mg PO DAILY labetalol 300 mg Tablet 400 mg PO TID Rx Instructions: Doesn't take before dialysis insulin glargine 100 unit/mL Solution 14 unit SUBCUT QHS levothyroxine 300 mcg Tablet 300 mcg PO WOODS clopidogrel 75 mg Tablet 75 mg PO QHS calcium acetate(phosphat bind) 667 mg Tablet 2,001 mg PO TIDCM levothyroxine 150 mcg Tablet 150 mcg PO MOTUWETHFRSA B ividahc-O-biwui acid-Zn Tablet 1 tab PO DAILY insulin lispro 100 unit/mL Insulin Pen 6 unit SUBCUT TIDCM insulin lispro 100 unit/mL Insulin Pen See Protocol SUBCUT TIDCM Protocol: 6. Sliding Scale Insulin Custom Condition: mg/dl range Condition: 200-250 Dose/Route: 2 Condition: 251-300 Dose/Route: 3 Condition: 301-350 Dose/Route: 4 Condition: 351-400 Dose/Route: 5 Condition: 401-450 Dose/Route: 6 Condition: 450+ Dose/Route: 6, notify Protocol Text: Custom Sliding Scale albuterol sulfate [Ventolin HFA] 90 mcg/actuation HFA aerosol inhaler 1 - 2 puff inhalation Q4H PRN PRN (Reason: Wheezing) Qty: 1 1RF ipratropium-albuterol 0.5 mg-3 mg(2.5 mg base)/3 mL solution for nebulization 3 ml inhalation Q6H PRN (Reason: shortness of breath or wheezing) Qty: 180 1RF Discontinued hydralazine 50 mg Tablet 50 mg PO TID Rx Instructions: does not take before dialysis Referrals / Follow Up: BARTOLO RONQUILLO [Other] Reno Toledo MD [Med Staff - Active Staff] - Within 2 Weeks Disposition Disposition (needs filled in before D/C Order can be placed): Home, Self Care
[2022-06-10] MEDS: Insulin Lispro 100 UNIT/ML INSULN.PEN 6 UNIT SC (15:39)
--- NOTE | 2022-06-10 15:45 | DS.PCM_ITS ---
Providers Date of Admission: 06/09/22 Primary Care Physician: BARTOLO RONQUILLO Reason For Visit: CARDIOMEGALY, HYPOXIA, COPD Diagnosis Discharge Diagnosis (1) Unstable angina: Status: Acute Code(s): I20.0 - Unstable angina Plan: Troponin is elevated but it is unclear if this is skewed due to her end-stage renal disease. Therefore I cannot qualify this as a non-ST ovation myocardial infarction at this time. Did discussed with Dr. Rowland. He agrees a troponin may be skewed due to her end-stage renal disease. He is okay with the patient having a stress test unless her troponin goes up considerably then at that point in time then cardiology be consulted and patient may need to have a left heart cesar terization. Patient did receive aspirin in the emergency room. We will continue with aspirin. Patient is on clopidogrel as well. Check fasting lipid panel Cycle troponins Check 2D echocardiogram Nuclear stress test negative Low suspicion for pulmonary embolism: Patient's PERC is 0 and Wells score 0. No additional work-up for PE at this time. Likely due to hypertensive urgency. (2) Hypertensive urgency: Status: Acute Code(s): I16.0 - Hypertensive urgency Plan: Improved. We will increase the patient's hydralazine from 50-103 times daily. Patient will also continue with her labetalol and nifedipine (3) Type 1 diabetes mellitus: Status: Acute Code(s): E10.9 - Type 1 diabetes mellitus without complications Qualifiers: Diabetes mellitus complication status: with ophthalmic complications Diabetes mellitus complication detail: with diabetic retinopathy Diabetic retinopathy severity: with unspecified retinopathy severity Diabetes mellitus macular edema: macular edema presence unspecified Laterality: bilateral Qualified Code(s): E10.319 - Type 1 diabetes mellitus with unspecified diabetic retinopathy without macular edema Plan: Continue with basal and prandial insulin Sliding-scale insulin A1c is 7.5 (4) End stage chronic kidney disease: Status: Chronic Code(s): N18.6 - End stage renal disease Plan: Patient is normal dialysis days are Sunday. Patient had incomplete session today ending 39 minutes early. Patient to follow-up with dialysis on her routine Plan Discharge home Medications at Discharge Home Medications B bvirsns-V-lpbjo acid-Zn tablet 1 tab PO DAILY supplement 05/15/22 albuterol sulfate 90 mcg/actuation aerosol inhaler (Ventolin HFA) 1 - 2 puff inhalation Q4H PRN PRN Wheezing #1 device 05/15/22 calcium acetate(phosphat bind) 667 mg tablet 2,001 mg PO TIDCM 05/15/22 clopidogrel 75 mg tablet 75 mg PO QHS 05/15/22 insulin glargine 100 unit/mL subcutaneous solution 14 unit subcut QHS 05/15/22 insulin lispro 100 unit/mL subcutaneous pen 6 unit subcut TIDCM diabetes 05/15/22 insulin lispro 100 unit/mL subcutaneous pen See Protocol subcut TIDCM diabetes 05/15/22 ipratropium 0.5 mg-albuterol 3 mg (2.5 mg base)/3 mL nebulization soln 3 ml inhalation Q6H PRN shortness of breath or wheezing #180 mL 05/15/22 labetalol 300 mg tablet 400 mg PO TID Blood pressure 05/15/22 levothyroxine 150 mcg tablet 150 mcg PO MOTUWETHFRSA thyroid 05/15/22 levothyroxine 300 mcg tablet 300 mcg PO WOODS thyroid 05/15/22 nifedipine 90 mg tablet,extended release 90 mg PO DAILY Blood pressure 05/15/22 hydralazine 50 mg tablet 100 mg PO TID #90 tabs 06/10/22 Weight / BMI Weight Weight: 75.9 kg Body Mass Index (BMI) 30.6 ABG / Lab / Microbiology Data Result Diagrams: 06/09/22 11:00 06/10/22 05:45 Laboratory: Laboratory Results - last 24 hr 06/09/22 16:14: POC Glucose 102 06/09/22 18:05: Troponin I High Sens 96 H 06/09/22 22:09: POC Glucose 155 H 06/10/22 05:45: Sodium 136, Potassium 4.9, Chloride 96 L, Carbon Dioxide 31.0, Anion Gap 9, BUN 48 H, Creatinine 8.20 H*, Estim Creat Clear Calc 7.36, Est GFR (MDRD) Af Amer 7 L, Est GFR (MDRD) Non-Af 6 L, BUN/Creatinine Ratio 5.9 L, Glucose 99, Calcium 8.6, Triglycerides 76, Cholesterol 128, LDL Cholesterol 45, VLDL Cholesterol 15, HDL Cholesterol 68, TSH 4.39 H 06/10/22 05:45: Hemoglobin A1c 7.5 H 06/10/22 06:26: POC Glucose 93 06/10/22 11:01: POC Glucose 168 H Radiography Diagnostic Testing: Radiology Impression Echocardiogram 06/09/22 13:51 Interpretation Summary The estimated ejection fraction is 70 %. Stage 2 diastolic dysfunction. Concentric left ventricular hypertrophy. Trivial mitral valve insufficiency. Mild tricuspid valve insufficiency. Small pericardial effusion. There are no echocardiographic indications of cardiac tamponade. Ordering Physician: Milan Mckeon Referring Physician: TRACEY PCP Performed By: Chio Cha RCS D/C Instructions Discharge Diet: 2000 Calorie Control Diet and Renal Diet Meaningful Use Info Meaningful Use Diagnoses (Choose all that apply): None applicable Discharge Plan Admission Admit Date/Time: 06/09/22 14:18 Primary Reason for Your Visit: chest pain Attending Provider: Milan Mckeon Primary Care Provider: BARTOLO RONQUILLO Discharge Orders/Prescriptions Prescriptions: New hydralazine 50 mg Tablet 100 mg PO TID Qty: 90 0RF Continued nifedipine 90 mg Tablet Extended Release 90 mg PO DAILY labetalol 300 mg Tablet 400 mg PO TID Rx Instructions: Doesn't take before dialysis insulin glargine 100 unit/mL Solution 14 unit SUBCUT QHS levothyroxine 300 mcg Tablet 300 mcg PO WOODS clopidogrel 75 mg Tablet 75 mg PO QHS calcium acetate(phosphat bind) 667 mg Tablet 2,001 mg PO TIDCM levothyroxine 150 mcg Tablet 150 mcg PO MOTUWETHFRSA B vszzfhk-L-bsthj acid-Zn Tablet 1 tab PO DAILY insulin lispro 100 unit/mL Insulin Pen 6 unit SUBCUT TIDCM insulin lispro 100 unit/mL Insulin Pen See Protocol SUBCUT TIDCM Protocol: 6. Sliding Scale Insulin Custom Condition: mg/dl range Condition: 200-250 Dose/Route: 2 Condition: 251-300 Dose/Route: 3 Condition: 301-350 Dose/Route: 4 Condition: 351-400 Dose/Route: 5 Condition: 401-450 Dose/Route: 6 Condition: 450+ Dose/Route: 6, notify md Protocol Text: Custom Sliding Scale albuterol sulfate [Ventolin HFA] 90 mcg/actuation HFA aerosol inhaler 1 - 2 puff inhalation Q4H PRN PRN (Reason: Wheezing) Qty: 1 1RF ipratropium-albuterol 0.5 mg-3 mg(2.5 mg base)/3 mL solution for nebulization 3 ml inhalation Q6H PRN (Reason: shortness of breath or wheezing) Qty: 180 1RF Discontinued hydralazine 50 mg Tablet 50 mg PO TID Rx Instructions: does not take before dialysis Referrals / Follow Up: BARTOLO RONQUILLO [Other] Reno Toledo MD [Med Staff - Active Staff] - Within 2 Weeks Disposition Disposition (needs filled in before D/C Order can be placed): Home, Self Care Charges/Coding Visit Charges OBSV E&M: 19987 Observation care discharge
== END 2022-06-10 16:40 | disposition home or self-care (01) | DRG 304 ==
LOC: ED 13:00 → PCU 13:26
PROVIDERS: Emergency Provider Emergency Medicine
DX: I16.0 Hypertensive urgency (principal); N18.6 End stage renal disease; I20.0 Unstable angina; E10.311 Type 1 diabetes mellitus with unspecified diabetic retinopathy with macular edema; E10.39 Type 1 diabetes mellitus with other diabetic ophthalmic complication; D63.1 Anemia in chronic kidney disease; E10.22 Type 1 diabetes mellitus with diabetic chronic kidney disease; I12.0 Hypertensive chronic kidney disease with stage 5 chronic kidney disease or end stage renal disease; J44.9 Chronic obstructive pulmonary disease, unspecified; Z99.2 Dependence on renal dialysis; Z79.4 Long term (current) use of insulin; F17.210 Nicotine dependence, cigarettes, uncomplicated; R09.02 Hypoxemia; Z79.82 Long term (current) use of aspirin; R77.8 Other specified abnormalities of plasma proteins
CPT/HCPCS: 36415; 71045; 78452; 80048; 80061; 82962; 83036; 84443; 84484; 85025; 93005; 93017; 93306; 94640; 99285; 99406; A9500; A4216; J2785

== ENCOUNTER 2022-06-13 06:49 | Emergency (ER) | payer MEDICARE, MEDICAID, SELFPAY ==
[2022-06-13 06:50] VITALS: BP 0/0; PULSE 0; RESP 0; TEMP -17.7; TEMP 0; O2SAT 0
--- NOTE | 2022-06-13 07:12 | EX.ED.CRITCA ---
HPI History of Present Illness Chief Complaint: CPR Informant: spouse/S.O. and EMS Onset/Context/Timing Onset: Today Context: Sudden Onset Timing: Continuous Narrative Narrative: Patient presents in cardiopulmonary arrest that began this morning. reports the patient had a seizure this morning and was breathing during her seizure. called 911. When EMS arrived at the scene, the patient was no longer breathing at that time. EMS placed in IO line. CPR was initiated by EMS. EMS placed an I-gel airway. EMS reports patient was in PEA on their arrival and maintained PEA on route to the hospital. EMS states that CPR was in progress for 40 minutes prior to arrival. [facility] Medical History (Updated 06/13/22 @ 08:[address] Milan Sifuentes, DO) Arteriovenous fistula of left upper extremity Cardiomegaly Chronic kidney disease (CKD) Diabetes Surgical History unable to obtain unable to obtain ROS ROS ED Review of Systems ROS Unobtainable: due to endotracheal tube, due to mental condition and due to mental status EXAM Physical Exam Const Vital Signs: 06/13/22 06:50 06/13/22 06:53 Temperature 0 F L Temperature Source Oral Pulse Rate 0 L Respiratory Rate 0 L Blood Pressure 0/0 L Pulse Ox 0 Oxygen Delivery Method Ambu-Bag Positive well nourished and well developed General Appearance ED: well developed HEENT normocephalic Neck supple and no JVD Resp Resp Narrative: There were no spontaneous respirations. Breath sounds were equal bilaterally with mechanical ventilation. Cardio Cardio Narrative: There were no heart tones auscultated. GI GI Narrative: Abdomen was somewhat distended. There were no masses palpated. Extremity Extremity Narrative: There is an AV fistula in the left upper extremity. There are no deformities noted. Neuro Neuro Narrative: Patient is unresponsive. MDM MDM MDM Narrative Medical decision making narrative: CPR was maintained. ACLS protocols were followed. Patient was intubated with a 7.5 ET tube to 23 cm at the lip. There is good condensation in the tube. There is good color change with end-tidal CO2. IV line was established. Patient was given epinephrine per ACLS protocols. Patient was also given a dose of atropine since she was bradycardic and in PEA. Patient had no return of spontaneous circulation with these measures. Total CPR time from initiation by EMS was 55 minutes. Patient was pronounced at 7:07 AM. Family is here and were notified. He was taken in to the room to be with the patient. does not know who her primary care physician is. 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
--- NOTE | 2022-06-13 08:58 | ED.RN ---
approx 100mL NS infused during code
--- NOTE | 2022-06-13 09:26 | ED.RN ---
THIS RN CALLED [facility] TO NOTIFY THEM THE PATIENT WENT TO THE [facility] AT 0920. TARAN VERBALIZED UNDERSTANDING. ALL PAPERWORK FAXED TO [facility] STATES RECEIVED.
--- NOTE | 2022-06-13 13:29 | CM.ED ---
RENARD Note RENARD received message from Vignesh Kiser RN. Father in law was calling as the family was practically homeless with limited resources. RENARD called patient's Father in Law, Anthony. Updated him that there is a Home, [facility] in [place] that does low cost cremation. Anthony said that the family was homeless and had nothing. RENARD advised that [facility] could [facility] and inquire about any resources for individuals without any resources. RENARD provided phone numbers for codifier and homes. Anthony also took the number for [facility] in [place]. Anthony's phone number is [phone]. Ester ALVARENGA
== END 2022-06-13 09:29 ==
PROVIDERS: Emergency Provider Emergency Medicine; Visit Provider Emergency Medicine
DX: I46.9 Cardiac arrest, cause unspecified (principal); J44.9 Chronic obstructive pulmonary disease, unspecified; E11.22 Type 2 diabetes mellitus with diabetic chronic kidney disease; R00.1 Bradycardia, unspecified; N18.9 Chronic kidney disease, unspecified
CPT/HCPCS: 92950; 99281; 99285; A4216